=== PATIENT | male | born 1950 | race Caucasian/White ===

== ENCOUNTER 2021-09-09 08:39 | Emergency (ER) | payer BC, OTHER ==
[2021-09-09] MEDS ORDERED: Sodium Chloride 0.9% 2.5 ML Syringe FLUSH PRN (09:01)
[2021-09-09] MEDS ORDERED: Sodium Chloride 0.9% 1,000 ML IV ONE (09:01)
[2021-09-09] MEDS ORDERED: Sodium Chloride 0.9% 10 ML Syringe FLUSH PRN (09:01)
[2021-09-09] MEDS ORDERED: Ketorolac 30 MG/ML SDV IVPUSH ONE (09:02)
[2021-09-09 09:35] LABS: POTASSIUM,K 4.3 mmol/L (3.5-5.1)
[2021-09-09] MEDS ORDERED: Lidocaine 5% 700 MG Patch TRDERM ONE (11:24)
== END 2021-09-09 11:46 | disposition home or self-care (01) ==
LOC: MW.ED 08:39
DX: R10.9 Unspecified abdominal pain (principal); R93.421 Abnormal radiologic findings on diagnostic imaging of right kidney; K21.9 Gastro-esophageal reflux disease without esophagitis; I10 Essential (primary) hypertension; E11.9 Type 2 diabetes mellitus without complications; Z87.442 Personal history of urinary calculi
CPT/HCPCS: 36415; 74176; 80053; 81001; 83690; 85025; 99284; A9270; J3490; J7030

== ENCOUNTER 2021-11-26 09:38 | Emergency (ER) | payer OTHER ==
[2021-11-26] MEDS ORDERED: Sodium Chloride 0.9% 1,000 ML IV ONE (10:07)
[2021-11-26] MEDS ORDERED: Ondansetron 4 MG/2 ML SDV IVPUSH ONE (10:07)
[2021-11-26] MEDS ORDERED: Morphine 4 MG/ML VIAL IVPUSH ONE ×2 (10:07→11:40)
[2021-11-26 11:29] LABS: BLOOD UREA NITROGEN,BUN 15 mg/dL (7.0-18.0); CARBON DIOXIDE,CO2 25.5 mmol/L (21.0-32.0); CHLORIDE,CL 105 mmol/L (98-107); GLUCOSE RANDOM 116 mg/dL (74-106); POTASSIUM,K 4.7 mmol/L (3.5-5.1); SODIUM,NA 141 mmol/L (136-148)
[2021-11-26 11:30] LABS: ESTIMATED GFR 71 mL/min (>60)
== END 2021-11-26 11:53 | disposition home or self-care (01) ==
LOC: MW.ED 09:38
DX: R10.11 Right upper quadrant pain (principal); Z79.899 Other long term (current) drug therapy
CPT/HCPCS: 36415; 80053; 81001; 85025; 96361; 96374; 96375; 96376; 99284; J2270; J2405; J7030